=== PATIENT | male | born 1975 | race Caucasian/White ===

== ENCOUNTER 2016-06-08 13:53 | Emergency (ER) | payer OTHER ==
[~2016-06-08] VITALS: Ht 170.2 cm; Wt 94.8 kg
[~2016-06-08 13:53] MED LIST: ALPRAZOLAM2 MG PO; AMLODIPINE10 MG PO; BETAMETHASONE D0.05% TOP; FIORICET 325 MG1 TAB PO; NORVASC 10MG10 MG PO; SUBOXONE 8 MG-21 FIL SL
[2016-06-08 16:17] LABS: ABSOLUTE BASOPHIL COUNT 0 /CUMM (0.0-0.2); ABSOLUTE EOSINOPHIL COUNT 0.7 /CUMM (0.0-0.7); ABSOLUTE GRANULOCYTE CT 3.9 /CUMM (1.4-6.5); ABSOLUTE LYMPH COUNT 3.1 /CUMM (1.2-3.4); ABSOLUTE MONOCYTE COUNT 0.5 /CUMM (0.10-0.60); BASOPHIL % 0.5 % (0.0-2.0); HEMATOCRIT 36.7 % (42-52); MEAN CORPUSCULAR HGB 28.3 PG (27.0-31.0); MEAN CORPUSCULAR HGB CONC 33.3 G/DL (33.0-37.0); MEAN CORPUSCULAR VOLUME 84.9 FL (80.0-94.0); MEAN PLATELET VOLUME 8.5 FL (7.4-10.4); PLATELET COUNT 282 /CUMM (130-400); RBC DISTRIBUTION WIDTH 14.2 % (11.5-14.5); RED BLOOD CELL CT 4.33 /CUMM (4.70-6.10); WHITE BLOOD CELL COUNT 8.2 /CUMM (4.8-10.8)
--- NOTE | 2016-06-08 19:08 | ED GENERAL ADULT ---
History of Present Illness General Chief Complaint: Abdominal Pain/Flank Pain Stated Complaint: RT UPPER QUAD ABDOMINAL PAIN Source: patient Exam Limitations: no limitations Vital Signs & Intake/Output Vital Signs & Intake/Output Vital Signs Date Time Temp Pulse Resp B/P Pulse O2 O2 Flow FiO2 Ox Delivery Rate 06/089 96.0 60 16 106/58 93 Room Air 06/08 1721 74 16 134/79 93 Room Air 06/08 1632 95 Room Air 06/08 1359 97.7 84 18 120/82 97 Room Air Allergies Coded Allergies: NO KNOWN ALLERGIES (11/10/14) Triage Note: PT STATES HE IS HAVING RIGHT UPPER ABD PAIN THAT HAS BEEN GOING ON FOR 2 WEEKS. PT STATES WENT TO SEE PCP AND WAS SENT HERE FOR PROBLEMS. PT CURRENTLY TAKING SOBOXONE AND STATES HE IS UNSURE IF THAT IS WHAT IS CAUSING THIS. Triage Nurses Notes Reviewed? yes HPI: 41-year-old man with multiple medical problems seen for evaluation of abdominal pain and bright red blood per rectum. He reports that the abdominal pain is localized to the right upper quadrant and has been present for roughly 2 weeks. He does not report any specific aggravating/alleviating factors. 2 associated bright red blood per rectum, but does comment on a history of bright red blood per rectum secondary to anal fissures and possible hemorrhoids for "as long as he can remember". He reports a bowel movement last night that was soft brown and loose grossly bloody. Otherwise he admits to back pain that is chronic, abdominal discomfort, nausea. Additionally he denies any headache, fever, chills, chest pain, palpitations, shortness of breath, vomiting. (LACEY TAI,MICHELET) Reconcile Medications Alprazolam 2 MG TABLET 1 TAB PO 5XDAILY PRN ANXIETY (Reported) Amlodipine Besylate 10 MG TABLET 1 TAB PO DAILY BP (Reported) Aspirin/Acetaminophen/Caffeine (Excedrin Extra Strength Caplet) 250 MG-250 MG-65 MG TABLET 1-2 TAB PO PRN PAIN (Reported) Buprenorphine HCl/Naloxone HCl (Suboxone 8 MG-2 MG Sl Film) 8 MG-2 MG FILM 0.5 STR SL BID CHRONIC PAIN (Reported) Ibuprofen (Advil) 200 MG CAPSULE 2-4 TAB PO PRN PAIN (Reported) (ANGUS TAI,KENDRICK Vick) Past History Travel History Traveled to [place] past 21 day No Medical History Any Pertinent Medical History? see below for history Neurological: TBI'S EENT: NONE Cardiovascular: hypertension Respiratory: NONE Gastrointestinal: NONE Hepatic: NONE Renal: NONE Musculoskeletal: SPINAL STENOSIS Psychiatric: NONE Endocrine: NONE Blood Disorders: NONE Cancer(s): NONE CONTINUITY PERSON/Reproductive: NONE Surgical History Surgical History: SPINAL SX X6 Psychosocial History What is your primary language Macanese Tobacco Use: Current Daily Use Daily Tobacco Use Amount/Type: => 5 Cigarettes daily ETOH Use: denies use Illicit Drug Use: denies illicit drug use Family History Hx Contributory? No (MICHELET RAHMAN MD) Review of Systems Review of Systems Constitutional: Reports: see HPI. (MICHELET RAHMAN MD) Review of Systems Constitutional: Reports: no symptoms. EENTM: Reports: no symptoms. Respiratory: Reports: no symptoms. Cardiovascular: Reports: no symptoms. GI: Reports: see HPI, abdominal pain, nausea. Genitourinary: Reports: no symptoms. Musculoskeletal: Reports: no symptoms. Skin: Reports: no symptoms. Neurological/Psychological: Reports: no symptoms. Hematologic/Endocrine: Reports: no symptoms. Immunologic/Allergic: Reports: no symptoms. All Other Systems: Reviewed and Negative (CHERYL CAMILO MD) Physical Exam Physical Exam General Appearance: well developed/nourished, no apparent distress, alert, awake Comments: General -all developed, well nourished, young man in mild distress HEENT - NCAT, PERRL, EOMI, anicteric sclera Cardio - S1, S2 w/o murmurs/gallops/rubs Resp - CTA bilaterally w/o wheezing/rhochi/crackles GI - soft, diffuse abdominal tenderness, Enamorado's sign positive, nondistended, bowel sounds present, no CVA tenderness Neuro - Awake and alert, CN II - XII grossly intact Extremities - no edema, pulses intact Core Measures ACS in differential dx? No CVA/TIA Diagnosis: No Severe Sepsis Present: No Septic Shock Present: No (MICHELET RAHMAN MD) Progress Differential Diagnoses I considered the following diagnoses in my evaluation of the patient: Cholecystitis, pancreatitis, biliary colic, renal colic, Plan of Care: Orders Procedure Date/time Status URINALYSIS 06/08 1544 Complete LIPASE 06/08 1544 Complete LACTIC ACID 06/08 1544 Complete COMPREHENSIVE METABOLIC PANEL 06/08 1544 Complete CBC WITHOUT DIFFERENTIAL 06/08 1544 Complete Laboratory Tests 06/08/16 1844: Lactic Acid Cancelled 06/08/16 1756: Urine Color YEL, Urine Clarity CLEAR, Urine pH 6.0, Ur Specific [place] 1.020, Urine Protein NEG, Urine Ketones TRACE H, Urine Nitrite NEG, Urine Bilirubin NEG, Urine Urobilinogen 1.0, Ur Leukocyte Esterase NEG, Ur Microscopic EXAM NOT REQUIRED, Urine Hemoglobin NEG, Urine Glucose NEG 06/08/16 1554: Anion Gap 8, Estimated GFR > 60, BUN/Creatinine Ratio 16.3, Glucose 95, Lactic Acid 0.8, Calcium 9.2, Total Bilirubin 0.4, AST 28, ALT 36, Alkaline Phosphatase 79, Total Protein 6.9, Albumin 4.1, Globulin 2.8, Albumin/Globulin Ratio 1.5, Lipase 25, CBC w Diff NO MAN DIFF REQ, RBC 4.33 L, MCV 84.9, MCH 28.3, RDW 14.2 , MPV 8.5, Gran % 47.0, Lymphocytes % 37.6, Monocytes % 5.9, Eosinophils % 9.0 H, Basophils % 0.5, Absolute Granulocytes 3.9, Absolute Lymphocytes 3.1, Absolute Monocytes 0.5, Absolute Eosinophils 0.7, Absolute Basophils 0, PUBS MCHC 33.3 Initial ED EKG: none Comments: Given patient's subjective complaints of abdominal pain with associated nausea and his extensive medical history including multiple back surgeries maintained on oral narcotic occasions it is possible patient is suffering from an opiate- induced constipation. He does Admit to a history of hematuria has demonstrated at his PCPs office this afternoon for which she was referred to the [facility] for further evaluation. Complete blood count demonstrated a hemoglobin/ hematocrit of 12.2/36.7 and was otherwise unremarkable. Complete metabolic panel demonstrated normal serum chemistries and liver function tests including a total bilirubin of 0.4 and lipase of 15. Urinalysis was unremarkable without hemoglobin. Abdominal ultrasound is to be obtained and is pending at this time. (LACEY TAI,MICHELET) Differential Diagnoses I considered the following diagnoses in my evaluation of the patient: Hand-Off Endorsed To: KENDRICK PRATT MD Endorsed Time: 1917 Pending: ultrasound (?renal vs biliary colic) (CHERYL CAMILO MD) Comments: 06/08/2016 7:35:42 PM patient signed out to me by Drs. 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 06/08/2016 9:16:29 PM I have just updated On His Test Results. He States He Is Unable to Take Narcotic Pain Relievers and He Still Appears Somewhat Uncomfortable. I Have Paged the General Surgeon. 06/08/2016 9:59:47 PM I have discussed this patient's case with Dr. Kaur, who will see the patient in his office within the next 48 hours to arrange for an outpatient cholecystectomy. The patient agrees. (ANGUS TAI,KENDRICK Vick) Departure Departure Condition: Stable Referrals: MARBELLA PAULP-BC,PURA Barksdale (PCP/Family) Departure Forms: Customer Survey General Discharge Information (LACEY TAI,MICHELET) Resident Co-Sign Statement Statement: ED Attending supervision documentation- x I saw and evaluated the patient. I have also reviewed all the pertinent lab results and diagnostic results. I agree with the findings and the plan of care as documented in the Resident's documentation. [] I have reviewed the ED Record and agree with the Resident's documentation. [] Additions or exceptions (if any) to the Resident's note and plan are summarized below: [] (TON TAI,CHERYL) Departure Disposition: HOME OR SELF CARE Clinical Impression Primary Impression: Abdominal pain Qualifiers: Abdominal location: right upper quadrant Qualified Code: R10.11 - Right upper quadrant pain Secondary Impressions: Biliary colic Additional Instructions: Follow-up with Dr. Kaur within the next 48 hours (call his office tomorrow to arrange for an appointment time). Low-fat diet. Tylenol 650 mg every 4 hours as needed for pain. Levsin as prescribed for pain. Notify your primary care doctor of this emergency department visit and treatment plan. Return if any concerns or sudden worsening. Please note that there might be incidental findings in your evaluation that are unrelated to the current emergency department visit. Please notify your primary care doctor about this emergency department visit in order to obtain and review all of the testing performed so that these incidental findings can be monitored as needed. If you had an x-ray performed, please understand that some fractures may not be seen on the initial set of x-rays. If your symptoms persist you might need a repeat set of x-rays to check for such a fracture. If you had a laceration evaluated, please understand that foreign bodies such as glass or wood may not be visible to the naked eye or on plain x-rays. If the wound becomes red, swollen, increasingly more painful or if there is any drainage from the wound, please have it reevaluated by a physician for the possibility of a retained foreign body. Thank you for choosing the [facility] Emergency Department for your care. It was a pleasure to serve you today. Kendrick Pratt M.D. [facility] Prescriptions: Current Visit Scripts Hyoscyamine (Levsin) 1-2 TAB PO Q6P PRN ABDOMINAL CRAMPS #20 TAB (ANGUS TAI,KENDRICK Vick) Critical Care Note Critical Care Note Critical Care Time: non-applicable (LACEY TAI,MICHELET)
[2016-06-08] MEDS ORDERED: EXCEDRIN EXTRA1 EACH PO (19:16)
[2016-06-08] MEDS ORDERED: AMLODIPINE BESY10 M1 PO (19:16)
[2016-06-08] MEDS ORDERED: ADVIL200 M1 PO (19:16)
[2016-06-08] MEDS ORDERED: SUBOXONE 8 MG-1 EACH SL (19:17)
[2016-06-08] MEDS ORDERED: ALPRAZOLAM2 M2 PO (19:19)
--- NOTE | 2016-06-08 20:49 | ULTRASOUND REPORT ---
EXAMINATION: US ABDOMEN LIMITED CLINICAL INFORMATION: Positive Enamorado's sign on physical examination. Abdominal pain for 2 weeks in a 41-year-old male patient. COMPARISON: None TECHNIQUE: Real-time imaging of the right upper quadrant abdominal viscera. FINDINGS: PANCREAS: Visualized portions of pancreas are normal. The common bile duct diameter in the head of the pancreas is normal at 6 mm. LIVER: Normal. The liver demonstrates normal size, contour and echogenicity. No focal lesion or intrahepatic biliary duct dilatation. GALLBLADDER: The gallbladder is abnormally enlarged. Gallbladder wall is thin. There is no pericholecystic edema. A number of stones are seen in the gallbladder lumen some of which approach 1.3 cm in diameter. By the licensed home inspector' s report, the patient was tender to palpation in the right upper quadrant. COMMON BILE DUCT: There is mild dilatation of the common bile duct in the geri hepatis. The lumen measures 1 cm in diameter. RIGHT KIDNEY: Normal. No hydronephrosis. No renal calculi or focal parenchymal lesions. The kidney measures 12.9 cm in maximum dimension. FREE FLUID: None. IMPRESSION: 1. Cholelithiasis in an enlarged gallbladder. 2. Mild dilatation of the common bile duct in the geri hepatis. The lumen of the common bile duct tapers to 6 mm in the head of the pancreas.
[2016-06-08] MEDS ORDERED: LEVSIN0.125 M1 PO (22:02)
[2016-06-08 22:04] VITALS: BP 112/70
== END 2016-06-08 22:10 ==
LOC: ERH 13:53
PROVIDERS: Internal Medicine Interventional Cardiology
DX: K80.50 Calculus of bile duct without cholangitis or cholecystitis without obstruction (principal)
CPT/HCPCS: 81003; 96374; 96375; J0131; J2550

== ENCOUNTER 2016-07-28 20:26 | Emergency (ER) | payer OTHER ==
[~2016-07-28] VITALS: Ht 177.8 cm; Wt 94.3 kg
[~2016-07-28 20:26] MED LIST changes: +ADVIL200 M1 PO; +ALPRAZOLAM2 M2 PO; +AMLODIPINE BESY10 M1 PO; +EXCEDRIN EXTRA1 EACH PO; +LEVSIN0.125 M1 PO; +SUBOXONE 8 MG-1 EACH SL
[2016-07-28 20:48] VITALS: BP 144/93
--- NOTE | 2016-07-28 21:08 | ED THROAT/DENTAL COMPLAINT ---
History of Present Illness General Chief Complaint: Sore Throat, Dental Pain Stated Complaint: RIGHT SIDE LOWER MOUTH PAIN Source: patient Exam Limitations: no limitations Vital Signs & Intake/Output Vital Signs & Intake/Output Vital Signs Date Time Temp Pulse Resp B/P Pulse O2 O2 Flow FiO2 Ox Delivery Rate 07/29 2047 98.4 106 20 144/93 99 Room Air Allergies Coded Allergies: NO KNOWN ALLERGIES (11/10/14) Reconcile Medications Alprazolam 2 MG TABLET 1 TAB PO 5XDAILY PRN ANXIETY (Reported) Amlodipine Besylate 10 MG TABLET 1 TAB PO DAILY BP (Reported) Aspirin/Acetaminophen/Caffeine (Excedrin Extra Strength Caplet) 250 MG-250 MG-65 MG TABLET 1-2 TAB PO PRN PAIN (Reported) Augmentin (Augmentin 500-125 Tablet) 500 MG-125 MG TABLET 1 TAB PO BID PRN DENTAL PAIN Buprenorphine HCl/Naloxone HCl (Suboxone 8 MG-2 MG Sl Film) 8 MG-2 MG FILM 0.5 STR SL BID CHRONIC PAIN (Reported) Hyoscyamine (Levsin) 0.125 MG TABLET 1-2 TAB PO Q6P PRN ABDOMINAL CRAMPS Ibuprofen (Advil) 200 MG CAPSULE 2-4 TAB PO PRN PAIN (Reported) Ketorolac Tromethamine 10 MG TABLET 1 TAB PO TID PRN pain Triage Note: RECEIVED 41 YO MALE C/O RIGHT LOWER MOUTH PAIN AND SWELLING X 3 TO 4 DAYS. PT HAD HIS TEETH BLOWN OUT FROM [place] IN [place]. Triage Nurses Notes Reviewed? yes Onset: Gradual Duration: constant Timing: recent history Injury Environment: home Severity: severe Severity Numbers: 8 HPI: Patient is a 41-year-old male with a past medical history poor dental hygiene and multiple tooth extractions who states that 8 days patient has a scheduled oral surgery tooth extraction to the anterior bottom teeth in which she states in the past 2-3 days his teeth have significant worsened and pain. Patient has tried [id number] Tylenol and Motrin with minimal relief of symptoms. Denies any fever chills, swelling discharge difficulty breathing difficulty swallowing. (SANTIAGO MAHONEY,MADISON) Past History Travel History Traveled to [place] past 21 day No Medical History Any Pertinent Medical History? 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 No (MADISON FREGOSO) Review of Systems Review of Systems Constitutional: Reports: no symptoms. EENTM: Reports: see HPI, throat pain. Respiratory: Reports: no symptoms. Cardiovascular: Reports: no symptoms. GI: Reports: no symptoms. Genitourinary: Reports: no symptoms. Musculoskeletal: Reports: no symptoms. Skin: Reports: no symptoms. Neurological/Psychological: Reports: no symptoms. Hematologic/Endocrine: Reports: no symptoms. Immunologic/Allergic: Reports: no symptoms. All Other Systems: Reviewed and Negative (MADISON FREGOSO) Physical Exam Physical Exam General Appearance: no apparent distress, alert, comfortable Mouth/Throat: pharynx normal Comments: Well-developed well-nourished person in no acute distress HEENT: Normal EENT exam, extraocular motion intact, no nystagmus. Pupils equally round and reactive to light and accommodation. Nose is atraumatic. External auditory canal and Tympanic membranes clear. Pharynx normal. No swelling or edema. No trismus no submandibular swelling Neck: Supple, no lymphadenopathy, normal range of motion without pain or tenderness Back: Nontender, no CVA tenderness. Cardiovascular: Regular rate and rhythms no murmurs rubs or gallops, normal JVP Respiratory: Chest nontender. No respiratory distress.breath sounds clear to auscultation bilaterally Abdomen: Soft, nontender nondistended, no appreciable organomegaly. Normal bowel sounds. No ascites Extremity: No edema, no calf tenderness to palpation, normal and equal pulses. Neuro: Alert oriented x3, motor sensory normal, Skin: No appreciable rash on exposed skin, skin is warm and dry. Psych: Mood and affect is normal, memory and judgment is normal. Diagram Dental: 1) Noted poor dentition severe point tenderness noted no surrounding gum swelling significant gingivitis No active discharge 2) 27-32 complete teeth removal No swelling 3) 17-22 complete dental tooth removal no swelling Core Measures ACS in differential dx? No Severe Sepsis Present: No Septic Shock Present: No (MADISON FREGOSO) Progress Differential Diagnosis: aspirated tooth, carious tooth, epiglottitis, Ludwigs angina, meningitis, odontogenic abscess, cece-tonsillar abscess, pharyngeal for. body, stomatitis/gingivitis, strep pharyngitis, tooth fracture Plan of Care: Current Medications Sig/Margaret Start time Last Medication Dose Stop Time Status Admin Ketorolac 30 MG ONCE ONE 07/28 2129 AC Tromethamine 07/28 2130 (Toradol) No concerns of dental abscess however he will be treated prophylactically patient was given ketorolac No concerns of peritonsillar abscess or Ruben angina no trismus afebrile patient was strongly advised to follow-up with oral surgeon and to return to emergency with symptoms worsen (MADISON FREGOSO) Departure Departure Disposition: HOME OR SELF CARE Condition: Stable Clinical Impression Primary Impression: Tooth pain Secondary Impressions: Poor dental hygiene Referrals: MARBELLA BRANNON,PURA Barksdale (PCP/Family) Additional Instructions: In the prescription OF Ketorolac for pain and inflammation. Begin the PRESCRIPTION of Augmentin as directed for infection prevention. PRESCRIPTIONS waiting at [facility] pharmacy. Follow up with your oral surgeon next week for further evaluation treatment. If symptoms worsen return to emergency room Departure Forms: Customer Survey General Discharge Information Prescriptions: Current Visit Scripts Ketorolac Tromethamine 1 TAB PO TID PRN pain #15 TAB Augmentin (Augmentin 500-125 Tablet) 1 TAB PO BID PRN DENTAL PAIN #14 TAB (MADISON FREGOSO) PA/CLIP BAKER Co-Sign Statement Statement: ED Attending supervision documentation- [] I saw and evaluated the patient. I have also reviewed all the pertinent lab results and diagnostic results. I agree with the findings and the plan of care as documented in the PA's/CLIP BAKER's documentation. [X] I have reviewed the ED Record and agree with the PA's/CLIP BAKER's documentation. [] Additions or exceptions (if any) to the PAs/CLIP BAKER's note and plan are summarized below: [] (ADAN TAI,SATHISH Raza)
[2016-07-28] MEDS ORDERED: KETOROLAC TROME10 M1 PO (21:31)
[2016-07-28] MEDS ORDERED: AUGMENTIN 500-1 EACH PO (21:31)
== END 2016-07-28 21:46 ==
LOC: ERH 20:26
DX: K08.89 Other specified disorders of teeth and supporting structures (principal)
CPT/HCPCS: 96372; J1885

== ENCOUNTER 2017-07-01 20:27 | Emergency (ER) | payer OTHER ==
[~2017-07-01] VITALS: Ht 172.7 cm; Wt 94.3 kg
[~2017-07-01 20:27] MED LIST changes: +AUGMENTIN 500-1 EACH PO; +CYCLOBENZAPRINE10 M1 PO; +KETOROLAC TROME10 M1 PO; +TRAMADOL HCL50 M1 PO
[2017-07-01] MEDS ORDERED: ANUSOL-HC30 GM TOP (23:01)
--- NOTE | 2017-07-01 23:03 | ED GENERAL ADULT ---
History of Present Illness General Chief Complaint: General Adult Stated Complaint: BLEEDING PAINFUL HEMORRHOIDS Source: patient Exam Limitations: no limitations Vital Signs & Intake/Output Vital Signs & Intake/Output Vital Signs Date Time Temp Pulse Resp B/P B/P Pulse O2 O2 Flow FiO2 Mean Ox Delivery Rate 07/01 2309 98.5 109 18 140/86 96 Room Air 07/015 98.3 109 17 147/94 98 Room Air Room Air ED Intake and Output 07/02 0000 07/01 1200 Intake Total 0 Output Total Balance 0 Intake, Oral 0 Patient 208 lb Weight Allergies Coded Allergies: No Known Allergies (07/01/17) Reconcile Medications Alprazolam 2 MG TABLET 1 TAB PO 5XDAILY PRN ANXIETY (Reported) Amlodipine Besylate 10 MG TABLET 1 TAB PO DAILY BP (Reported) Aspirin/Acetaminophen/Caffeine (Excedrin Extra Strength Caplet) 250 MG-250 MG-65 MG TABLET 1-2 TAB PO PRN PAIN (Reported) Augmentin (Augmentin 500-125 Tablet) 500 MG-125 MG TABLET 1 TAB PO BID PRN DENTAL PAIN Buprenorphine HCl/Naloxone HCl (Suboxone 8 MG-2 MG Sl Film) 8 MG-2 MG FILM 0.5 STR SL BID CHRONIC PAIN (Reported) Cyclobenzaprine HCl 10 MG TABLET 1 TAB PO QPM PRN MUSCLE STRAIN Hydrocortisone (Anusol-Hc) 2.5 % CREAM..G. 1 CALIXTO TOP BID hemorrhoid apply to affected area(s) Hyoscyamine (Levsin) 0.125 MG TABLET 1-2 TAB PO Q6P PRN ABDOMINAL CRAMPS Ibuprofen (Advil) 200 MG CAPSULE 2-4 TAB PO PRN PAIN (Reported) Ketorolac Tromethamine 10 MG TABLET 1 TAB PO TID PRN pain Tramadol HCl 50 MG TABLET 1 TAB PO BIDP PRN PAIN Triage Note: PT TO TRIAGE FOR HEMMORHOIDS THAT IS BLEEDING. PT HAS A HX OF FISSURES. PT HAS BEEN USING WITCH[place]ZEL. Triage Nurses Notes Reviewed? 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 Pt reports extensive bowel regimen, uses colaces, enemas, apple juice/prune juice, but still with severe constipation. Was strainging to pass a hard BM 3 days ago, reports he was finally able to pass hard stool after straining for a prolonged period of time, but then had rectal pain and blood in the toilet water. Has drops of bright red blood in his underwear since and continued rectal pain. Denies fevers, abdominal pain, melena, or anti- coagulation. Past History Travel History Traveled to [place] past 21 day No Medical History Any Pertinent Medical History? 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 No Review of Systems Review of Systems Constitutional: Reports: no symptoms. EENTM: Reports: no symptoms. Respiratory: Reports: no symptoms. Cardiovascular: Reports: no symptoms. GI: Reports: see HPI. Genitourinary: Reports: no symptoms. Musculoskeletal: Reports: no symptoms. Skin: Reports: no symptoms. Neurological/Psychological: Reports: no symptoms. Hematologic/Endocrine: Reports: no symptoms. Immunologic/Allergic: Reports: no symptoms. Physical Exam Physical Exam General Appearance: well developed/nourished, no apparent distress, alert, awake , comfortable Head: atraumatic, normal appearance Eyes: Bilateral: normal appearance. Neck: normal inspection Respiratory: normal breath sounds, lungs clear Cardiovascular: regular rate/rhythm, normal peripheral pulses Gastrointestinal: soft, non-tender Rectal: On rectal exam there is a large non-thrombosed external hemmorhoid to the left of the rectal opening. There is a smaller non-thrombosed external hemorrhoid to the right of the rectal opening with mild active bleeding. Slight anal fissure just inferior to hemorrhoid on the right. Back: normal inspection Extremities: normal inspection Neurologic/Psych: awake, alert, oriented x 3, normal gait Skin: intact, normal color, warm/dry Core Measures ACS in differential dx? No CVA/TIA Diagnosis: No Sepsis Present: No Sepsis Focused Exam Completed? No Progress Differential Diagnoses I considered the following diagnoses in my evaluation of the patient: [External hemorrhoid vs anal fissue vs constipation, low concern for GI bleed] Plan of Care: Current Medications Sig/Margaret Start time Last Medication Dose Stop Time Status Admin Magnesium Citrate 300 ML ONE ONE 07/01 2314 UNVr (Citrate Of Magnesia 07/02 2315 300 Ml) Slight bleeding from small hemorrhoid was controlled with application of silver nitrate stick. Pt counseled to continue bowel regimen and add miralx and magnesium citrate as needed for persistent constipation. Given rx anusol for hemorrhoids. Will f/u with PMD and given strict return precautions. Initial ED EKG: none Departure Departure Disposition: HOME OR SELF CARE Condition: Stable Clinical Impression Primary Impression: Hemorrhoid Secondary Impressions: Fissure, anal Referrals: Layne BRANNON,Yfn Barksdale (PCP/Family) Additional Instructions: Apply anusol twice a day to affected areas. Continue your bowel regimen. Use magnesium citrate as needed for constipation. Follow up with your primary care provider for re-evaluation. Return to the emergency department for any new or worsening symptoms. Departure Forms: Customer Survey General Discharge Information Prescriptions: Current Visit Scripts Hydrocortisone (Anusol-Hc) 1 CALIXTO TOP BID #30 GM apply to affected area(s) Critical Care Note Critical Care Note Critical Care Time: non-applicable
[2017-07-01 23:09] VITALS: BP 140/86
== END 2017-07-01 23:16 ==
LOC: ERH 20:27
DX: K64.9 Unspecified hemorrhoids (principal); K60.2 Anal fissure, unspecified